=== PATIENT | male | born 2000 | race American Indian/Alaskan Native ===

== ENCOUNTER 2020-10-02 02:15 | Emergency (ER) | payer SELFPAY ==
[2020-10-02] MEDS ORDERED: IBUPROFEN 600 MG TAB PO ONE (05:02)
[2020-10-02] MEDS ORDERED: DIPHtheria,PERTUSSIS(ACELL),TETANUS VACCINE/PF 0.5 ML VIAL IM ONE (05:02)
--- NOTE | 2020-10-02 05:18 | Emergency Department Report ---
- General Chief complaint: Wound/Laceration Stated complaint: STEP ON NAIL LEFT FOOT Time Seen by Provider: 10/02/20 05:02 Source: patient Mode of arrival: Ambulatory Limitations: No Limitations - History of Present Illness Initial comments: The patient was evaluated in the emergency department for symptoms described in the history of present illness. He/she was evaluated in the context of the global COVID-19 pandemic, which necessitated consideration that the patient might be at risk for infection with the virus that causes COVID-19. Institutional protocols and algorithms that pertain to the evaluation of patients at risk for COVID-19 are in a state of rapid change based on information released by regulatory bodies including the CDC and federal and state organizations. These policies and algorithms were followed during the patient's care in the emergency department. Please note that these policies, procedures and recommendations changed on a rapid basis. 20-year-old Americans presents to the emergency room stating he stepped on a nail at 2200 on 10/01/2020 with his left foot. Patient states he is unaware of his last tetanus shot. Patient also reports that he is constantly working in the cold and he complains of toes and foot pains concern for reoccurrence frostbite. Patient states the right foot is worse than the left. Patient has not had anything for pain management. - Related Data Previous Rx's Medication Instructions Recorded Last Taken Type Ciprofloxacin HCl [Ciprofloxacin 500 mg PO BID 7 Days #14 tablet 10/02/20 Unknown Rx TAB] Ibuprofen [Motrin 600 MG tab] 600 mg PO Q8H PRN #21 tablet 10/02/20 Unknown Rx Allergies Allergy/AdvReac Type Severity Reaction Status Date / Time No Known Allergies Allergy Unverified 10/02/20 04:10 Abscess Boil HPI - HPI Chief Complaint: Wound/Laceration Stated Complaint: STEP ON NAIL LEFT FOOT Time Seen by Provider: 10/02/20 05:02 Home Medications: Previous Rx's Medication Instructions Recorded Last Taken Type Ciprofloxacin HCl [Ciprofloxacin 500 mg PO BID 7 Days #14 tablet 10/02/20 Unknown Rx TAB] Ibuprofen [Motrin 600 MG tab] 600 mg PO Q8H PRN #21 tablet 10/02/20 Unknown Rx Allergies/Adverse Reactions: Allergies Allergy/AdvReac Type Severity Reaction Status Date / Time No Known Allergies Allergy Unverified 10/02/20 04:10 ED Review of Systems ROS: Stated complaint: STEP ON NAIL LEFT FOOT Other details as noted in HPI ED Past Medical Hx - Past Medical History Previous Medical History?: No - Surgical History Past Surgical History?: No - Social History Smoking Status: Current Every Day Smoker Substance Use Type: None - Medications Home Medications: Home Medications Medication Instructions Recorded Confirmed Last Taken Type Ciprofloxacin HCl [Ciprofloxacin 500 mg PO BID 7 Days #14 tablet 10/02/20 Unknown Rx TAB] Ibuprofen [Motrin 600 MG tab] 600 mg PO Q8H PRN #21 tablet 10/02/20 Unknown Rx ED Physical Exam - General Limitations: No Limitations ED Course Vital Signs 10/02/20 04:00 Temperature 98.8 F Pulse Rate 89 Respiratory 18 Rate Blood Pressure 141/87 O2 Sat by Pulse 99 Oximetry ED Medical Decision Making - Radiology Data Radiology results: report reviewed [address] [address] XRay Report Signed Patient: CASEY SALAZAR MR#: [id number] : 2000 Acct:[id number] Age/Sex: 20 / M ADM Date: 10/02/20 Loc: ED Attending Dr: Ordering Physician: GUADALUPE GOODMAN Date of Service: 10/02/20 Procedure(s): XR foot 1V LT Accession Number(s): [id number] cc: GUADALUPE GOODMAN Fluoro Time In Minutes: XR foot 1V LT INDICATION: Stepped on a nail. COMPARISON: No relevant prior imaging study available. FINDINGS: No acute skeletal abnormality. No significant soft tissue abnormality. No radiodense foreign bodies. IMPRESSION: 1. No acute findings. Signer Name: Jim Blanc MD Signed: 10/02/2020 5:36 AM Workstation Name: [id number] Transcribed By: REGIS Dictated By: Jim Blanc MD Electronically Authenticated By: Jim Blanc MD Signed Date/Time: 10/02/20535 DD/ 5 TD/TT: - Medical Decision Making 20-year-old Americans presents to the emergency room stating he stepped on a nail at 2200 on 10/01/2020 with his left foot. Patient states he is unaware of his last tetanus shot. Patient also reports that he is constantly working in the cold and he complains of toes and foot pains concern for reoccurrence frostbite. Patient states the right foot is worse than the left. Patient has not had anything for pain management. Patient ordered x-ray of left foot, ibuprofen, Adacel IM and foot soak. Critical care attestation.: If time is entered above; I have spent that time in minutes in the direct care of this critically ill patient, excluding procedure time. ED Disposition Clinical Impression: Trench foot Qualifiers: Encounter type: initial encounter Laterality: unspecified laterality Qualified Code(s): T69.029A - Immersion foot, unspecified foot, initial encounter Foreign body in foot, left Qualifiers: Encounter type: initial encounter Qualified Code(s): S90.852A - Superficial foreign body, left foot, initial encounter Disposition: TO HOME OR SELFCARE Is pt being admited?: No Does the pt Need Aspirin: No Condition: Stable Instructions: Hand or Foot Foreign Body, Adult Additional Instructions: Complete antibiotics as prescribed pain medication as needed. Be sure to wear clean dry socks daily you can use [id number]-itlagem [employer] powder. Prescriptions: Ciprofloxacin HCl [Ciprofloxacin TAB] 500 mg PO BID 7 Days #14 tablet Ibuprofen [Motrin 600 MG tab] 600 mg PO Q8H PRN #21 tablet PRN Reason: Pain Referrals: TAYLOR HELM DPM [Staff Physician] - 3-5 Days Forms: Work/School Release Form(ED)
--- NOTE | 2020-10-02 05:41 | XRay Report ---
XR foot 1V LT INDICATION: Stepped on a nail. COMPARISON: No relevant prior imaging study available. FINDINGS: No acute skeletal abnormality. No significant soft tissue abnormality. No radiodense foreign bodies. IMPRESSION: 1. No acute findings. Signer Name: Jim Blanc MD Signed: 10/02/2020 5:36 AM Workstation Name: [id number]
[2020-10-02 06:32] VITALS: BP 132/82
== END 2020-10-02 06:10 | disposition home or self-care (01) ==
LOC: ED 02:15
DX: S90.852A Superficial foreign body, left foot, initial encounter (principal); T69.029A Immersion foot, unspecified foot, initial encounter; F17.200 Nicotine dependence, unspecified, uncomplicated; X58.XXXA Exposure to other specified factors, initial encounter; Y93.89 Activity, other specified; Y92.89 Other specified places as the place of occurrence of the external cause; Y99.8 Other external cause status
CPT/HCPCS: 90471; 90715